=== PATIENT | female | born 1980 | race Caucasian/White ===

== ENCOUNTER → 2020-11-18 | Outpatient (CLI) | payer SELFPAY | LOC: M LABSMTC 12:18 | PROVIDERS: ATTEND Pediatrics | DX: Z20.822 Contact with and (suspected) exposure to COVID-19 (principal) ==

== ENCOUNTER 2021-05-16 14:42 | Emergency (ER) | payer OTHER ==
[~2021-05-16] VITALS: Ht 170.2 cm; Wt 81.8 kg
[2021-05-16] MEDS ORDERED: ADDE1TAB14 PO (17:35)
[2021-05-16] MEDS ORDERED: LEVO137T2 PO (17:35)
--- NOTE | 2021-05-16 17:52 | REP ---
INDICATION: trauma. COMPARISON: . TECHNIQUE: Upright PA and lateral chest. FINDINGS: The lung sethi are clear. Cardiac size is normal. The morales, mediastinum and skeletal structures are unremarkable. IMPRESSION: Essentially negative PA and lateral chest <Electronically signed by Rc Hernández > 05/16/21 [id number]
[2021-05-16] MEDS ORDERED: KETOROLAC 60MG 2ML VIAL IM ONE (18:35)
--- NOTE | 2021-05-16 19:01 | REP ---
INDICATION: left rib pain s/p blunt trauma. COMPARISON: PA and lateral chest performed earlier today. TECHNIQUE: There are four views. FINDINGS: There is a nondisplaced fracture anterior laterally of the left 9th rib. There is no pneumothorax, hemothorax or pulmonary contusion. IMPRESSION: Anterolateral nondisplaced left 9th rib fracture. <Electronically signed by Rc Hernándze > 05/16/21 [id number]
[2021-05-16] MEDS ORDERED: HYDR-3713 PO (19:11)
[2021-05-16 19:24] VITALS: BP 124/85
== END 2021-05-16 19:34 | disposition home or self-care (01) ==
LOC: M ED 14:42
DX: S22.32XA Fracture of one rib, left side, initial encounter for closed fracture (principal); W22.8XXA Striking against or struck by other objects, initial encounter; Y92.89 Other specified places as the place of occurrence of the external cause; Z79.899 Other long term (current) drug therapy; F17.210 Nicotine dependence, cigarettes, uncomplicated
CPT/HCPCS: 36415; 71046; 71100; 84702; 96372; 99284; J1885

== ENCOUNTER 2021-12-07 10:25 | Inpatient (IN) | payer OTHER ==
[~2021-12-07] VITALS: Ht 167.6 cm; Wt 78.6 kg
[~2021-12-07 10:25] MED LIST: ADDE1TAB14 PO; HYDR-3713 PO; LEVO137T2 PO
[2021-12-07] MEDS ORDERED: ATOR40TA75 PO (10:34)
[2021-12-07 11:07] LABS: BASO % 0.6 % (0.0-1.0); EOS # 0.2 10^3/uL (0.0-0.5); EOS % 2.9 % (0.0-3.0); HEMATOCRIT 39.5 % (36.0-47.0); HEMOGLOBIN 13.2 g/dl (12.0-15.5); LYMPH # 1.5 10^3/uL (1.5-5.0); LYMPH % 22.6 % (24.0-44.0); MEAN CORPUSCULAR HEMOGLOBIN 31.9 pg (27.0-33.0); MEAN CORPUSCULAR HGB CONC 33.4 g/dl (32.0-36.5); MEAN CORPUSCULAR VOLUME 95.4 fl (80.0-96.0); MONO # 0.4 10^3/uL (0.0-0.8); MONO % 5.8 % (2.0-8.0); NEUTROPHILS # 4.4 10^3/uL (1.5-8.5); NEUTROPHILS % 67.8 % (36.0-66.0); PLATELET COUNT, AUTOMATED 239 10^3/uL (150-450); RED BLOOD COUNT 4.14 10^6/uL (4.00-5.40); WHITE BLOOD COUNT 6.5 10^3/uL (4.0-10.0)
[2021-12-07 11:36] LABS: AMPHETAMINES LEVEL URINE NEGATIVE (NEGATIVE); BARBITURATES URINE NEGATIVE (NEGATIVE); BENZODIAZEPINES URINE NEGATIVE (NEGATIVE); CANNABINOIDS URINE NEGATIVE (NEGATIVE); COCAINE METABOLITE URINE NEGATIVE (NEGATIVE); METHADONE URINE NEGATIVE (NEGATIVE); OPIATES URINE NEGATIVE (NEGATIVE); PHENCYCLIDINE URINE NEGATIVE (NEGATIVE)
[2021-12-07 11:45] LABS: ACETAMINOPHEN LEVEL < 2.0 UG/ML (10.0-30.0); ALBUMIN 4.7 GM/DL (3.2-5.2); ALT/SGPT 42 U/L (12-78); BILIRUBIN,DIRECT 0.1 MG/DL (0.0-0.2); BILIRUBIN,TOTAL 0.3 MG/DL (0.2-1.0); BLOOD UREA NITROGEN 17 MG/DL (7-18); CALCIUM LEVEL 9.3 MG/DL (8.5-10.1); CARBON DIOXIDE LEVEL 28 MEQ/L (21-32); CHLORIDE LEVEL 105 MEQ/L (98-107); CREATININE FOR GFR 1.07 MG/DL (0.55-1.30); ETHYL ALCOHOL (ETHANOL) < 0.003 % (0.000-0.010); GLOMERULAR FILTRATION RATE > 60.0 (>60); GLUCOSE, FASTING 92 MG/DL (70-100); MAGNESIUM LEVEL 1.8 MG/DL (1.8-2.4); SALICYLATE LEVEL < 1.7 MG/DL (5.0-30.0); SODIUM LEVEL 139 MEQ/L (136-145); TOTAL PROTEIN 7.5 GM/DL (6.4-8.2)
[2021-12-07 11:55] LABS: HCG, SERUM QUALITATIVE NEGATIVE (NEGATIVE)
[2021-12-07] MEDS ORDERED: AMPH1CAP16 PO (17:47)
[2021-12-07] MEDS ORDERED: LEVO150T7 PO (17:47)
[2021-12-07] MEDS ORDERED: HOME MED LIST COMPLETE! XX SCH (17:50)
[2021-12-07] MEDS ORDERED: MOM 30ML SUSPENSION UDC PO PRN (20:25)
[2021-12-07] MEDS ORDERED: MAALOX 30 ML SUSP *UDC PO PRN (20:25)
[2021-12-07] MEDS ORDERED: LORazepam 1 MG TAB PO PRN (20:25)
[2021-12-07] MEDS: ATORVASTATIN 20 MG TAB PO SCH (21:00)
[2021-12-07 21:28] LABS: RSV AMPLIFICATION NEGATIVE (NEGATIVE)
[2021-12-07] MEDS: traZODone 50 MG TAB PO PRN (23:03)
[2021-12-07 23:12] VITALS: BP 135/86
[2021-12-08] MEDS ORDERED: LEVOTHYROXINE 150MCG TABLET (0.15MG) PO SCH (06:00)
[2021-12-08] MEDS: ADDERALL 5 MG TAB PO SCH ×2 (07:17→12:13)
[2021-12-08] MEDS: LEVOTHYROXINE 150MCG TABLET (0.15MG) PO SCH (07:17)
[2021-12-08] MEDS: ACETAMINOPHEN TAB 650MG DOSE (2X325MG) PO PRN (08:24)
[2021-12-08] MEDS ORDERED: ADDERALL 5 MG TAB PO SCH (09:00)
[2021-12-08] MEDS ORDERED: ATORVASTATIN 20 MG TAB PO SCH (09:00)
[2021-12-08] MEDS ORDERED: AMPHETAMINE/DEXTROAMPHETAMINE 5 MG *ER* CAPSULE (ADDERALL XR) PO SCH (09:00)
[2021-12-08] MEDS ORDERED: NICOTINE 14 MG/24 HR TRANSDERMAL TD PRN (09:10)
[2021-12-08] MEDS ORDERED: IBUPROFEN 800 MG TAB PO PRN (11:50)
[2021-12-08 18:22] VITALS: BP 130/69
[2021-12-08] MEDS: PRAZOSIN 1 MG CAP PO SCH (21:03)
[2021-12-08] MEDS: traZODone 50 MG TAB PO PRN (21:03)
[2021-12-08] MEDS: ATORVASTATIN 20 MG TAB PO SCH (21:04)
[2021-12-08] MEDS: hydrOXYzine 10 MG TAB PO SCH (21:20)
[2021-12-08] MEDS: SERTRALINE HCL 50 MG TAB PO SCH (21:21)
[2021-12-09] MEDS: LEVOTHYROXINE 150MCG TABLET (0.15MG) PO SCH (05:37)
[2021-12-09] MEDS: ADDERALL 5 MG TAB PO SCH ×2 (05:37→11:54)
[2021-12-09] MEDS: ACETAMINOPHEN TAB 650MG DOSE (2X325MG) PO PRN (05:40)
[2021-12-09 07:18] VITALS: BP 119/64
[2021-12-09] MEDS: hydrOXYzine 10 MG TAB PO SCH ×2 (08:29→21:25)
[2021-12-09 09:06] LABS: CHOLESTEROL RISK RATIO 4.615 (<5)
[2021-12-09] MEDS: MIRALAX *UNIT DOSE* 17GM PACKET PO SCH (14:45)
[2021-12-09 18:46] VITALS: BP 132/68
[2021-12-09] MEDS: PRAZOSIN 1 MG CAP PO SCH (21:25)
[2021-12-09] MEDS: SERTRALINE HCL 50 MG TAB PO SCH (21:25)
[2021-12-09] MEDS: traZODone 50 MG TAB PO PRN (21:25)
[2021-12-09] MEDS: ATORVASTATIN 20 MG TAB PO SCH (21:25)
[2021-12-10] MEDS: LEVOTHYROXINE 150MCG TABLET (0.15MG) PO SCH (05:44)
[2021-12-10] MEDS: ADDERALL 5 MG TAB PO SCH ×2 (05:44→12:15)
[2021-12-10 06:24] VITALS: BP 126/79
[2021-12-10] MEDS: MIRALAX *UNIT DOSE* 17GM PACKET PO SCH (08:54)
[2021-12-10] MEDS: hydrOXYzine 10 MG TAB PO SCH ×2 (08:54→20:36)
[2021-12-10 18:23] VITALS: BP 121/87
[2021-12-10] MEDS: traZODone 50 MG TAB PO PRN (20:35)
[2021-12-10] MEDS: PRAZOSIN 1 MG CAP PO SCH (20:35)
[2021-12-10] MEDS: SERTRALINE HCL 50 MG TAB PO SCH (20:36)
[2021-12-10] MEDS: ATORVASTATIN 20 MG TAB PO SCH (20:36)
[2021-12-11] MEDS: LEVOTHYROXINE 150MCG TABLET (0.15MG) PO SCH (05:42)
[2021-12-11] MEDS: ADDERALL 5 MG TAB PO SCH ×2 (05:42→12:18)
[2021-12-11 06:18] VITALS: BP 102/67
[2021-12-11] MEDS: MIRALAX *UNIT DOSE* 17GM PACKET PO SCH (08:38)
[2021-12-11] MEDS: hydrOXYzine 10 MG TAB PO SCH ×2 (08:38→20:05)
[2021-12-11] MEDS: LORazepam 0.5 MG TAB PO PRN (08:38)
[2021-12-11] MEDS ORDERED: DOCUSATE SODIUM 100MG CAPSULE PO PRN (11:25)
[2021-12-11] MEDS: NALTREXONE 50 MG TAB PO SCH (12:18)
[2021-12-11 16:42] VITALS: BP 129/68
[2021-12-11] MEDS: PRAZOSIN 1 MG CAP PO SCH (20:05)
[2021-12-11] MEDS: SERTRALINE HCL 50 MG TAB PO SCH (20:05)
[2021-12-11] MEDS: traZODone 50 MG TAB PO PRN (20:05)
[2021-12-11] MEDS: ATORVASTATIN 20 MG TAB PO SCH (20:05)
[2021-12-12] MEDS: LEVOTHYROXINE 150MCG TABLET (0.15MG) PO SCH (05:39)
[2021-12-12] MEDS: ADDERALL 5 MG TAB PO SCH ×2 (05:40→11:43)
[2021-12-12 06:11] VITALS: BP 129/68
[2021-12-12] MEDS: hydrOXYzine 10 MG TAB PO SCH ×2 (08:15→20:43)
[2021-12-12] MEDS: MIRALAX *UNIT DOSE* 17GM PACKET PO SCH (08:15)
[2021-12-12] MEDS: NALTREXONE 50 MG TAB PO SCH ×2 (08:18→13:58)
[2021-12-12] MEDS ORDERED: DOCUSATE SODIUM 100MG CAPSULE PO PRN (12:50)
[2021-12-12] MEDS: LORazepam 0.5 MG TAB PO PRN ×2 (13:58→20:43)
[2021-12-12 15:55] VITALS: BP 135/81
[2021-12-12] MEDS: SERTRALINE HCL 50 MG TAB PO SCH (20:43)
[2021-12-12] MEDS: ATORVASTATIN 20 MG TAB PO SCH (20:44)
[2021-12-12 20:46] VITALS: BP 114/73
[2021-12-12] MEDS: PRAZOSIN 1 MG CAP PO SCH (20:46)
[2021-12-13] MEDS: ADDERALL 5 MG TAB PO SCH ×2 (05:32→11:28)
[2021-12-13] MEDS: LEVOTHYROXINE 150MCG TABLET (0.15MG) PO SCH (05:32)
[2021-12-13 06:06] VITALS: BP 153/84
[2021-12-13] MEDS: MIRALAX *UNIT DOSE* 17GM PACKET PO SCH (09:21)
[2021-12-13] MEDS: NALTREXONE 50 MG TAB PO SCH (09:21)
[2021-12-13] MEDS: hydrOXYzine 10 MG TAB PO SCH (09:21)
[2021-12-13] MEDS ORDERED: MIRA1POW3 PO (09:29)
[2021-12-13] MEDS ORDERED: NALT50TA4 PO (09:29)
[2021-12-13] MEDS ORDERED: MINI1CAP PO (09:29)
[2021-12-13] MEDS ORDERED: SERT50TA29 PO (09:29)
[2021-12-13] MEDS ORDERED: COLA100C5 PO (09:29)
[2021-12-13] MEDS ORDERED: LEVO150T7 PO (09:29)
[2021-12-13] MEDS: LORazepam 0.5 MG TAB PO PRN (11:28)
== END 2021-12-13 11:33 | disposition home or self-care (01) | DRG 882 ==
LOC: M ED 10:25 → M ED INP 20:21 → M PSY 22:55
PROVIDERS: ADMIT Student in an Organized Health Care Education/Training Program; ATTEND Student in an Organized Health Care Education/Training Program
DX: F43.20 Adjustment disorder, unspecified (principal); F10.20 Alcohol dependence, uncomplicated; F60.89 Other specific personality disorders; Z86.16 Personal history of COVID-19; Z20.822 Contact with and (suspected) exposure to COVID-19; Z91.82 Personal history of military deployment; Z63.4 Disappearance and death of family member; Z63.5 Disruption of family by separation and divorce; Z91.51 Personal history of suicidal behavior; F90.9 Attention-deficit hyperactivity disorder, unspecified type; E03.9 Hypothyroidism, unspecified; Z97.8 Presence of other specified devices; F17.290 Nicotine dependence, other tobacco product, uncomplicated; Z62.810 Personal history of physical and sexual abuse in childhood; Z79.899 Other long term (current) drug therapy

== ENCOUNTER 2022-12-08 08:33 | Emergency (ER) | payer OTHER ==
[~2022-12-08] VITALS: Ht 170.2 cm; Wt 90.4 kg
[~2022-12-08 08:33] MED LIST changes: +AMPH1CAP16 PO; +ATOR40TA75 PO; +COLA100C5 PO; +LEVO150T7 PO; +MINI1CAP PO; +MIRA1POW3 PO; +NALT50TA4 PO; +SERT50TA29 PO
[2022-12-08] MEDS ORDERED: HYDR-643 (08:53)
[2022-12-08] MEDS ORDERED: GABA-282 (08:53)
[2022-12-08] MEDS ORDERED: MULTTAB61 (08:53)
[2022-12-08] MEDS ORDERED: LIDOCAINE 1% MDV 20ML VIAL IM ONE (09:35)
[2022-12-08] MEDS ORDERED: LIDOCAINE 1% MDV 20ML VIAL As Ordered ONE (09:36)
[2022-12-08] MEDS ORDERED: ACET-897 PO (10:43)
[2022-12-08] MEDS ORDERED: IBUPROFEN 800 MG TAB PO ONE (10:45)
[2022-12-08] MEDS ORDERED: NEOSPORIN TOP OINT 15GM TOP ONE (10:50)
[2022-12-08 10:57] VITALS: BP 139/76
== END 2022-12-08 11:14 | disposition home or self-care (01) ==
LOC: M ED 08:33
DX: S61.312A Laceration without foreign body of right middle finger with damage to nail, initial encounter (principal); W23.1XXA Caught, crushed, jammed, or pinched between stationary objects, initial encounter; Y92.099 Unspecified place in other non-institutional residence as the place of occurrence of the external cause; Y93.89 Activity, other specified; K21.9 Gastro-esophageal reflux disease without esophagitis; F90.9 Attention-deficit hyperactivity disorder, unspecified type; F32.9 Major depressive disorder, single episode, unspecified; F17.290 Nicotine dependence, other tobacco product, uncomplicated; Z79.899 Other long term (current) drug therapy

== ENCOUNTER → 2023-02-25 | Outpatient (CLI) | payer OTHER ==
[~2023-02-25] MED LIST changes: +ACET-897 PO; +GABA-282; +HYDR-643; +MULTTAB61
== END ==
LOC: M WHC 08:38
PROVIDERS: ATTEND Technician, Other
DX: Z12.31 Encounter for screening mammogram for malignant neoplasm of breast (principal)